=== PATIENT | female | born 2000 | race Caucasian/White ===

== ENCOUNTER 2021-11-08 04:19 | Emergency (ER) | payer BC, MEDICAID ==
[~2021-11-08] VITALS: Ht 162.6 cm; Wt 97.5 kg
[~2021-11-08 04:19] MED LIST: AMOX-423 PO; HYDR-3919 PO
[2021-11-08 04:25] VITALS: BP_SYST 153
--- NOTE | 2021-11-08 04:26 | NUR ---
Patient to ER bed 4 to gown for evaluation. Side rails up. Report given to Fernando RAMIREZ (Levar).
--- NOTE | 2021-11-08 04:35 | NUR ---
PATIENT RESTING IN BED, NO SIGNS OF DISTRESS NOTED. WAITING TO BE SEEN BY MD.
--- NOTE | 2021-11-08 04:41 | NUR ---
ER Dr. SINGH at bedside examining patient.
[2021-11-08] MEDS ORDERED: OMEP20TA20 PO (04:51)
[2021-11-08] MEDS ORDERED: ONDA-8 TL (04:51)
[2021-11-08] MEDS ORDERED: IBUP-1971 PO (04:51)
--- NOTE | 2021-11-08 05:41 | NUR ---
Patient given written and verbal discharge instructions and verbalizes understanding. ER MD discussed with patient the results and treatment provided. Patient in stable condition. ID arm band removed. IV catheter removed intact and dressing applied, no active bleeding. Rx of MEDS BY MD given. Patient educated on pain management and to follow up with PMD. Pain Scale . Opportunity for questions provided and answered. Medication side effect fact sheet provided.
== END 2021-11-08 05:41 | disposition home or self-care (01) ==
LOC: SED 04:19
DX: R10.13 Epigastric pain (principal); R11.2 Nausea with vomiting, unspecified; Z79.899 Other long term (current) drug therapy
CPT/HCPCS: 99283